=== PATIENT | male | born 1925 | race Caucasian/White ===

== ENCOUNTER 2017-03-25 19:52 | Inpatient (IN) | payer MEDICARE ==
[~2017-03-25 19:52] MED LIST: ACIPHEX20 MG PO; ASPIR-LOW81 M1 PO; ASPIRIN325 MG PO; CALCIUM 600 MG1 EACH PO; COLACE100 MG PO; COLESTIPOL HCL1 G2 PO; CRANBERRY300 MG PO; CRANBERRY450 M4 PO; DUONEB 2.5-0.5 M3 ML IH; FLONASE16 G3 NS; K-DUR20 ME1 PO; KLOR-CON M2020 MEQ PO; LACTAID FAS9000 UNI1 PO; LASIX40 M1 PO; LEVOXYL112 MCG PO; LEVOXYL137 MC2 PO; LEVOXYL50 MCG PO; LIPITOR40 MG PO; LOPRESSOR50 M1 PO; LOPRESSOR50 MG PO; MECLIZINE HCL25 M3 PO; MELOXICAM7.5 MG PO; MUCINEX600 MG PO; MULTI-DAY VITA1 EACH PO; NIACIN50 MG PO; NIACIN750 MG PO; NORVASC10 M1 PO; NORVASC5 M1 PO; NORVASC5 M2 PO; OMEPRAZOLE20 M3 PO; POTASSIUM CHLO10 ME2 PO; PRINIVIL5 MG PO; ROBITUSSIN-AC5 ML PO; TERAZOSIN HCL2 M1 PO; TERAZOSIN5 MG PO; TYLENOL325 M1 PO; VITAMIN C1000 M1 PO; ZETIA10 MG PO
[2017-03-25] MEDS ORDERED: CALCIUM 500 +1 EAC9 PO (20:19)
[2017-03-25] MEDS ORDERED: FLOMAX0.4 M1 PO (20:20)
[2017-03-25 20:24] LABS: BASO % 0.6 % (0-2); EOS % 6.9 % (0-7); EOSINOPHIL ABSOLUTE COUNT 0.5 tho/cmm (0.0-0.7); HCT-HEMATOCRIT 35.8 % (36.0-53.5); HGB-HEMOGLOBIN 12.6 gm/dl (13.5-17.0); IMMATURE GRANULOCYTES ABSOLUTE 0.01 tho/cmm (0-0.03); IMMATURE GRANULOCYTES PERCENT 0.1 % (0-0.3); LYMPH % 38.1 % (20-45); LYMPH ABSOLUTE COUNT 2.8 tho/cmm (0.8-4.5); MCH (MEAN CORPUSCULAR HGB) 33.4 pg (28.0-32.0); MCHC MEAN CORPUSCULAR HGB CONC 35.2 % (32.0-36.0); MEAN PLATELET VOLUME 9.8 cmc (9.4-12.4); MONO % 7.8 % (0-12); MONOCYTE ABSOLUTE COUNT 0.6 tho/cmm (0.0-1.2); NEUTROPHIL ABSOLUTE COUNT 3.4 tho/cmm (1.6-8.0); NEUTROPHIL-AUTOMATED 3.4 tho/cmm (1.6-8.0); NEUTROPHILS % 46.5 % (40-80); PLATELET COUNT 205 tho/cmm (150-450); RED BLOOD COUNT 3.77 mil/cmm (4.40-5.70); RED CELL DISTRIBUTION WIDTH 13.3 % (12.4-16.4); WHITE BLOOD COUNT 7.3 tho/cmm (4.0-10.0)
[2017-03-25] MEDS ORDERED: FLUOROURACIL TP (20:25)
[2017-03-25] MEDS ORDERED: [UNRECOGNIZED DRUG - OTHER] PO (20:26)
[2017-03-25 20:42] LABS: ALB/GLOB RATIO 0.9 (0.8-2.0); ALBUMIN 3.6 g/dl (3.5-5.0); ALKALINE PHOSPHATASE 151 U/L (33-138); ALT/SGPT 23 U/L (12-78); ANION GAP 17 mmol/L (0-20); AST/SGOT 20 U/L (10-40); BILIRUBIN,TOTAL 0.2 mg/dl (0.0-1.5); BLOOD UREA NITROGEN 19 mg/dl (6-24); CALCIUM 8.5 mg/dl (8.5-10.5); CARBON DIOXIDE-VENOUS 23 mmol/L (22-32); CHLORIDE 107 mmol/l (96-110); CREATININE 1.43 mg/dl (0.60-1.30); GLUCOSE 117 mg/dL (70-110); POTASSIUM 4.1 mmol/L (3.7-5.1); SODIUM 143 mmol/L (135-145); eGFR VALUE FOR BLACK 50 mL/Min
[2017-03-25 20:46] LABS: ESR-ERYTHROCYTE SED RATE 40 mm/hr (0-20)
[2017-03-26 09:42] LABS: TSH-THYROID STIMULATING HORM. 3.67 uIU/ml (0.40-3.80)
[2017-03-27] MEDS ORDERED: ASPIRIN325 M3 PO (15:38)
[2017-03-27] MEDS ORDERED: LIPITOR10 M1 PO (15:40)
== END 2017-03-27 15:40 | DRG 65 ==
LOC: EDMED 19:52 → 5EB 03-26 01:22
PROVIDERS: Emergency Medicine; Internal Medicine; Psychiatry & Neurology Neurology; ADMIT Internal Medicine
DX: I63.9 Cerebral infarction, unspecified (principal); I13.0 Hypertensive heart and chronic kidney disease with heart failure and stage 1 through stage 4 chronic kidney disease, or unspecified chronic kidney disease; C43.9 Malignant melanoma of skin, unspecified; I50.32 Chronic diastolic (congestive) heart failure; R00.1 Bradycardia, unspecified; Z51.5 Encounter for palliative care; E03.9 Hypothyroidism, unspecified; R27.0 Ataxia, unspecified; E78.5 Hyperlipidemia, unspecified; I25.10 Atherosclerotic heart disease of native coronary artery without angina pectoris; R47.81 Slurred speech; N18.9 Chronic kidney disease, unspecified; I65.22 Occlusion and stenosis of left carotid artery; Z79.82 Long term (current) use of aspirin; Z79.899 Other long term (current) drug therapy; Z95.5 Presence of coronary angioplasty implant and graft; T44.7X5A Adverse effect of beta-adrenoreceptor antagonists, initial encounter
CPT/HCPCS: C8929; G8978-GP-CK; G8979-GP-CJ; G8987-GO-CJ; G8988-GO-CI